=== PATIENT | female | born 1995 | race Caucasian/White ===

== ENCOUNTER 2017-10-08 16:29 | Emergency (ER) | payer MEDICAID, SELFPAY ==
[2017-10-08] MEDS ORDERED: Proparacaine 0.5% Opth 15 ML BOT ONE (18:03)
[2017-10-08] MEDS ORDERED: Fluorescein Opthalmic Strip ONE ×2 (18:04→18:09)
== END 2017-10-08 19:36 | disposition home or self-care (01) ==
LOC: ERS 16:29
DX: H10.023 Other mucopurulent conjunctivitis, bilateral (principal); F17.210 Nicotine dependence, cigarettes, uncomplicated; Z71.6 Tobacco abuse counseling
CPT/HCPCS: 99406